=== PATIENT | male | born 1985 | race American Indian/Alaskan Native ===

== ENCOUNTER 2017-05-11 10:23 | Emergency (ER) | payer OTHER ==
[2017-05-11 10:32] VITALS: BP 108/77
[2017-05-11 10:54] LABS: Basophils % (Auto) 0.5 % (0.0-1.8); Hematocrit 46.9 % (35.5-45.6); Hemoglobin 16.1 gm/dl (11.8-15.2); Mean Corpuscular HGB Conc 34 % (32-34); Mean Corpuscular Hemoglobin 31 pg (28-32); Mean Corpuscular Volume 89 fl (84-94); Platelet Count 201 K/mm3 (140-440); Red Blood Count 5.25 M/mm3 (3.65-5.03); Red Cell Distribution Width 12.9 % (13.2-15.2); White Blood Count 6.8 K/mm3 (4.5-11.0)
--- NOTE | 2017-05-11 10:58 | XRay Report ---
ROUTINE CHEST, TWO VIEWS: HISTORY: Flulike symptoms. The trachea, heart, mediastinal contour, lung callejas and bony thorax are unremarkable. IMPRESSION: Unremarkable chest x-ray.
[2017-05-11 11:05] LABS: Anion Gap 18 mmol/L; Blood Urea Nitrogen 13 mg/dL (9-20); Calcium 9.1 mg/dL (8.4-10.2); Carbon Dioxide 24 mmol/L (22-30); Chloride 102.3 mmol/L (98-107); Glucose 104 mg/dL (75-100); Potassium 3.8 mmol/L (3.6-5.0); Sodium 140 mmol/L (137-145)
--- NOTE | 2017-05-11 12:21 | Emergency Department Report ---
Upper Respiratory HPI - HPI Chief Complaint: Upper Respiratory Infection Stated Complaint: COUGHING BLOOD/FLU SYMPTOMS Time Seen by Provider: 05/11/17 11:58 Duration: 5 Days URI Symptoms: Rhinorrhea: Yes, Sore Throat: Yes, Ear Pain: Yes, Cough: Yes, Shortness of Breath: No, Sick Contacts: No, Unable to Take Fluids: No, Urine Output Abnormal: No, Listless Behavior: No - Home Meds and Allergies Home Medications: Previous Rx's Medication Instructions Recorded Last Taken Type Azithromycin [Zithromax Z-EDITH] 0 mg PO DAILY #1 pack 04/29/15 Unknown Rx HYDROcodone/APAP 10-325 [[place] 1 each PO Q4-6H PRN #20 tablet 04/29/15 Unknown Rx 10/325] Methocarbamol [Robaxin TAB] 750 mg PO Q8H PRN #21 tablet 04/29/15 Unknown Rx Promethazine Dm [Phenergan Dm 5 ml PO Q6H PRN #120 ml 04/29/15 Unknown Rx 6.25/15 mg 5 ml] Amoxicillin/K Clav Tab [Augmentin 1 tab PO Q12HR #20 tab 05/11/17 Unknown Rx 875 mg] Ibuprofen [Motrin 800 MG tab] 800 mg PO Q8HR PRN #30 tablet 05/11/17 Unknown Rx P-Ephed HCl/Codeine/Guaifen 5 ml PO Q6HR PRN #120 ml 05/11/17 Unknown Rx [Cheratussin DAC 30-10-100 mg/5 ml] Allergies/Adverse Reactions: Allergies Allergy/AdvReac Type Severity Reaction Status Date / Time No Known Allergies Allergy Verified 04/29/15 12:15 ED Review of Systems ROS: Stated complaint: COUGHING BLOOD/FLU SYMPTOMS Other details as noted in HPI Constitutional: denies: chills, fever Eyes: denies: eye pain, eye discharge, vision change ENT: ear pain, throat pain, congestion Respiratory: cough, wheezing. denies: orthopnea, shortness of breath Cardiovascular: denies: chest pain, palpitations Endocrine: no symptoms reported Gastrointestinal: denies: abdominal pain, nausea, diarrhea Genitourinary: denies: urgency, dysuria Musculoskeletal: denies: back pain, joint swelling, arthralgia Skin: denies: rash, lesions Neurological: denies: headache, weakness, paresthesias Psychiatric: denies: anxiety, depression Hematological/Lymphatic: denies: easy bleeding, easy bruising ED Past Medical Hx - Past Medical History Previous Medical History?: No - Surgical History Past Surgical History?: No - Social History Smoking Status: Never Smoker Substance Use Type: None - Medications Home Medications: Home Medications Medication Instructions Recorded Confirmed Last Taken Type Azithromycin [Zithromax Z-EDITH] 0 mg PO DAILY #1 pack 04/29/15 Unknown Rx HYDROcodone/APAP 10-325 [[place] 1 each PO Q4-6H PRN #20 tablet 04/29/15 Unknown Rx 10/325] Methocarbamol [Robaxin TAB] 750 mg PO Q8H PRN #21 tablet 04/29/15 Unknown Rx Promethazine Dm [Phenergan Dm 5 ml PO Q6H PRN #120 ml 04/29/15 Unknown Rx 6.25/15 mg 5 ml] Amoxicillin/K Clav Tab [Augmentin 1 tab PO Q12HR #20 tab 05/11/17 Unknown Rx 875 mg] Ibuprofen [Motrin 800 MG tab] 800 mg PO Q8HR PRN #30 tablet 05/11/17 Unknown Rx P-Ephed HCl/Codeine/Guaifen 5 ml PO Q6HR PRN #120 ml 05/11/17 Unknown Rx [Cheratussin DAC 30-10-100 mg/5 ml] ED Bronchiolitis Physical Exam - Exam General: Vital signs noted. No distress. Alert and acting appropriately. HEENT: Yes Pharyngeal Erythema, Yes Rhinorrhea, No Conjuctival Injection, No Dry Mucous Membranes Ear: Left TM Erythema, Neither TM Bulge, Neither EAC Discharge Neck: No Adenopathy, No Rigidity Lungs: Yes Clear Lung Sounds, Yes Good Air Exchange, Yes Cough, No Wheezes, No Stridor, No Nasal Flaring, No Retractions, No Use of Accessory Muscles Heart: Yes Regular, No Murmur Abdomen: Yes Normal Bowel Sounds, No Tenderness Skin: No Rash, No Eczema Neurologic: Alert and oriented, no deficits. Musculoskeletal: Unremarkable. ED Bronchiolitis Tests - Testing Testing: CXR: Normal/Negative ED Physical Exam - General Limitations: No Limitations General appearance: alert, in no apparent distress - Head Head exam: Present: atraumatic, normocephalic - Eye Eye exam: Present: normal appearance ED Course Vital Signs 05/11/17 10:27 Temperature 98.5 F Pulse Rate 76 Respiratory 18 Rate Blood Pressure 108/77 O2 Sat by Pulse 100 Oximetry ED Medical Decision Making - Lab Data Result diagrams: 05/11/17 10:38 05/11/17 10:38 - Medical Decision Making pt is a 32 y/o aam with nmh who presents for headcongestion cough productive green noc fever bilat ear and throat pain x 5 days symptoms are exacerbated bay acivity symptoms are relieved by nothing exam: Bilat TM erythema pain , nose : bilat turbinater erythema edema clear post nasal dip pharynx moderate erythema no lesions no exudate uvula midline, no stridor lungs clear bilat no wheezing , no fever chills no at this time. Critical care attestation.: If time is entered above; I have spent that time in minutes in the direct care of this critically ill patient, excluding procedure time. ED Disposition Clinical Impression: Bronchitis AOM (acute otitis media) Qualifiers: Otitis media type: serous Laterality: bilateral Recurrence: not specified as recurrent Qualified Code(s): H65.03 - Acute serous otitis media, bilateral URI (upper respiratory infection) Qualifiers: URI type: unspecified viral URI Qualified Code(s): J06.9 - Acute upper respiratory infection, unspecified; B97.89 - Other viral agents as the cause of diseases classified elsewhere Disposition: DC-01 TO HOME OR SELFCARE Is pt being admited?: No Does the pt Need Aspirin: No Condition: Good Instructions: Chronic Bronchitis (ED) Additional Instructions: follow up with your pcp in 3-4 days Prescriptions: Amoxicillin/K Clav Tab [Augmentin 875 mg] 1 tab PO Q12HR #20 tab Ibuprofen [Motrin 800 MG tab] 800 mg PO Q8HR PRN #30 tablet PRN Reason: pain P-Ephed HCl/Codeine/Guaifen [Cheratussin DAC 30-10-100 mg/5 ml] 5 ml PO Q6HR PRN #120 ml PRN Reason: Cough Referrals: PRIMARY CARE,MD [Primary Care Provider] - 3-5 Days Forms: Work/School Release Form(ED) Time of Disposition: 12:26
== END 2017-05-11 12:38 | disposition home or self-care (01) ==
LOC: ED 10:23
DX: J40 Bronchitis, not specified as acute or chronic (principal); H66.93 Otitis media, unspecified, bilateral; J06.9 Acute upper respiratory infection, unspecified
CPT/HCPCS: 36415; 71020; 80048; 85025; 99283

== ENCOUNTER 2018-11-21 07:32 | Emergency (ER) | payer OTHER ==
--- NOTE | 2018-11-21 08:31 | Emergency Department Report ---
HPI - General Chief Complaint: Back Pain/Injury Time Seen by Provider: 11/21/18 08:16 - HPI HPI: 33-year-old male with no prior medical history presents complaining of lower back pain 2-3 days. Patient states he does a lot of heavy lifting and moving heavy stuff at work. Patient states that he continues he strained his back while doing this. Patient states he is working hard nonstop with no dissolve. Patient denies any injuries, fall trauma to the back. He denies dysuria, abdominal pain, chest pain. ED Past Medical Hx - Past Medical History Previous Medical History?: No - Surgical History Past Surgical History?: No - Social History Smoking Status: Never Smoker Substance Use Type: Marijuana - Medications Home Medications: Home Medications Medication Instructions Recorded Confirmed Last Taken Type Azithromycin [Zithromax Z-EDITH] 0 mg PO DAILY #1 pack 04/29/15 Unknown Rx HYDROcodone/APAP 10-325 [[place] 1 each PO Q4-6H PRN #20 tablet 04/29/15 Unknown Rx 10/325] Methocarbamol [Robaxin TAB] 750 mg PO Q8H PRN #21 tablet 04/29/15 Unknown Rx Promethazine Dm (Nf) [Phenergan Dm 5 ml PO Q6H PRN #120 ml 04/29/15 Unknown Rx 6.25/15 mg 5 ml] Amoxicillin/K Clav Tab [Augmentin 1 tab PO Q12HR #20 tab 05/11/17 Unknown Rx 875 mg] Pseudoephed/Codeine/Guaifen 5 ml PO Q6HR PRN #120 ml 05/11/17 Unknown Rx [Cheratussin DAC 30-10-100 mg/5 ml] Cyclobenzaprine [Flexeril] 10 mg PO QHS PRN #20 tablet 11/21/18 Unknown Rx Ibuprofen [Motrin 800 MG tab] 800 mg PO Q8HR PRN #30 tablet 11/21/18 Unknown Rx ED Review of Systems ROS: Stated complaint: BACK PAIN Other details as noted in HPI Comment: All other systems reviewed and negative Physical Exam - Physical Exam Vital Signs: Vital Signs 11/21/18 07:49 Temperature 98.6 F Pulse Rate 68 Respiratory 20 Rate Blood Pressure 127/61 O2 Sat by Pulse 99 Oximetry Physical Exam: GENERAL: Alert and oriented x3, no apparent distress, Normal Gait, atraumatic. HEAD: Head is normocephalic and a-traumatic. NECK: Supple. Non edematous, No lymphadenopathy or thyromegaly. No C-spine tenderness, full range of motion LUNGS: Symetrical with respiration, No wheezing, no rales or crackles, CTAB. HEART: S1, S2 present, regular rate and rhythm without murmur, no rubs, no gallops. Non tender to palpation BACK: Full range of motion, no spinal tenderness, Tenderness to palpation of the trapezius muscles and latissimus dorsi muscles of the back EXTREMITIES/MUSCULOSKELETAL: No cyanosis, clubbing, rash, lesions or edema. Full ROM bilaterally. UE/LE Pulses 2+ bilaterally. NEUROLOGIC: The patient is cooperative with no focal neurologic deficits. SKIN: Warm and dry, No lesions, No ulceration or induration present. ED Course Vital Signs 11/21/18 07:49 Temperature 98.6 F Pulse Rate 68 Respiratory 20 Rate Blood Pressure 127/61 O2 Sat by Pulse 99 Oximetry ED Medical Decision Making - Medical Decision Making 33-year-old male presents to ED with myalgia ED course: Patient received Toradol and Flexeril in ED. Vital signs are normal patient is in no acute distress Discussed with patient follow-up with primary care physician. Discussed the patient and take medications as prescribed. Patient has no neurological deficit. Patient is alert and oriented 3 and understands all instructions given. Discussed drowsiness effect of Flexeril makes her drowsy and not to operate machinery while taking flexeril Critical care attestation.: If time is entered above; I have spent that time in minutes in the direct care of this critically ill patient, excluding procedure time. ED Disposition Clinical Impression: Strain of muscle, fascia and tendon of lower back, initial encounter Disposition: DC-01 TO HOME OR SELFCARE Is pt being admited?: No Does the pt Need Aspirin: No Condition: Stable Instructions: Muscle Strain (ED), Low Back Strain (ED) Additional Instructions: Make sure to follow up with the primary care physician as discussed. Take all your medications as you've been prescribed. If you have any worsening symptoms or develop new symptoms please return to ED immediately. Prescriptions: Cyclobenzaprine [Flexeril] 10 mg PO QHS PRN #20 tablet PRN Reason: Muscle Spasm Ibuprofen [Motrin 800 MG tab] 800 mg PO Q8HR PRN #30 tablet PRN Reason: pain Referrals: CARBUCCIA,JHONATHAN [Primary Care Provider] - 3-5 Days [facility] [Outside] - 3-5 Days [facility] [Outside] - 3-5 Days Forms: Work/School Release Form(ED) Time of Disposition: 08:37
== END 2018-11-21 08:43 | disposition home or self-care (01) ==
LOC: ED 07:32
CPT/HCPCS: 99282

== ENCOUNTER 2019-05-26 06:57 | Emergency (ER) | payer OTHER ==
[2019-05-26 07:03] VITALS: BP 111/65
--- NOTE | 2019-05-26 07:46 | Emergency Department Report ---
ED Back Pain/Injury HPI - General Chief Complaint: Back Pain/Injury Stated Complaint: BACK PAIN Time Seen by Provider: 05/26/19 07:42 Source: patient Limitations: No Limitations - History of Present Illness Initial Comments: This is a 34-year-old male here report that this he injured his back at work from lifting heavy boxes and reduction to get boxes of shelves. He said this is going on for 2 days and is having pain in his lower back. Denies any direct trauma. Denies any numbness or tingling to extremities. Denies any loss of bowel or bladder function. Denies any nausea or vomiting. Denies any abdominal pain. Pain is 7 out of 10 H he and sharp. Pain is worse with bending and better at rest then. Denies taking any medication prior to coming to hospital. Patient has been here in the past 11/21/2018 and was prescribed Flexeril and ibuprofen. Denies any chest pain or headache. Has any abdominal pain. Pain is intermittent MD Complaint: back pain Onset/Timin -: days(s) Similar Symptoms Previously: Yes Place: work Radiation: none Severity: severe Severity scale (0 -10): 7 Quality: sharp, aching Consistency: intermittent Improves With: immobilization Worsens With: movement Context: other (LIFTING heavy objects) Associated Symptoms: denies: confusion, weakness, chest pain, numbness, difficulty walking, cough, difficulty urinating, diaphoresis, incontinence, fever/chills, constipation, headaches, abdominal pain, loss of appetite, malaise, nausea/vomiting, rash, seizure, shortness of breath, syncope Treatments Prior to Arrival: other (NONE) - Related Data Previous Rx's Medication Instructions Recorded Last Taken Type Azithromycin [Zithromax Z-EDITH] 0 mg PO DAILY #1 pack 04/29/15 Unknown Rx HYDROcodone/APAP 10-325 [[place] 1 each PO Q4-6H PRN #20 tablet 04/29/15 Unknown Rx 10/325] Promethazine Dm (Nf) [Phenergan Dm 5 ml PO Q6H PRN #120 ml 04/29/15 Unknown Rx 6.25/15 mg 5 ml] methOCARBAMOL [Robaxin TAB] 750 mg PO Q8H PRN #21 tablet 04/29/15 Unknown Rx Amoxicillin/K Clav Tab [Augmentin 1 tab PO Q12HR #20 tab 05/11/17 Unknown Rx 875 mg] Pseudoephed/Codeine/Guaifen 5 ml PO Q6HR PRN #120 ml 05/11/17 Unknown Rx [Cheratussin DAC 30-10-100 mg/5 ml] Cyclobenzaprine [Flexeril] 10 mg PO QHS PRN #20 tablet 11/21/18 Unknown Rx Ibuprofen [Motrin 800 MG tab] 800 mg PO Q8HR PRN #30 tablet 11/21/18 Unknown Rx Cyclobenzaprine [Flexeril] 10 mg PO TID PRN #12 tablet 05/26/19 Unknown Rx Ibuprofen [Motrin] 800 mg PO Q8HR PRN #12 tablet 05/26/19 Unknown Rx Allergies Allergy/AdvReac Type Severity Reaction Status Date / Time No Known Allergies Allergy Verified 04/29/15 12:15 ED Review of Systems ROS: Stated complaint: BACK PAIN Other details as noted in HPI Constitutional: denies: chills, fever Respiratory: denies: cough, shortness of breath, wheezing Cardiovascular: denies: chest pain, palpitations, edema, syncope Gastrointestinal: denies: abdominal pain, nausea, vomiting Genitourinary: denies: dysuria, hematuria, testicular pain Musculoskeletal: back pain. denies: joint swelling, arthralgia, myalgia Skin: denies: rash Neurological: denies: headache, numbness, paresthesias, abnormal gait, vertigo ED Past Medical Hx - Past Medical History EPISODIC back pain Surgical history: no surgical history Family history: no significant family history - Social History Smoking Status: Never Smoker Alcohol use: none Drug use: none ED Back Pain Physical Exam - Exam General: Vital signs noted. No distress. Alert and acting appropriately. 34-year-old male well-nourished well-developed in no acute distress Abdomen: Soft, nontender to palpation in all quadrants. Normal bowel sounds ext: No clubbing cyanosis or edema. +2 pulses in all extremities. MSK: Patient ambulates without any difficulties, normal exam with full range of motion. No joints abnormalities Lungs: cLEAR Auscultated bilaterally, no rhonchi wheezes or rales CV: S1-S2, regular Neurological: GCS of 15, normal gait, negative pronator drift. Negative straight leg raises, normal sensation to extremities, gait and Romberg. No motor sensory deficits Back/Abdomen: No Abdominal Tenderness, No Perithoracic Tenderness, No Perilumbar Tenderness, No Sacroiliac Tenderness, No Flank Tenderness, No Straight Leg Raise Pain Neuro: Yes Normal Sensation, Yes Motor Weakness, Yes Normal DTR's, Yes Normal Gait ED Course Vital Signs 05/26/19 06:59 Temperature 97.9 F Pulse Rate 61 Respiratory 18 Rate Blood Pressure 111/65 O2 Sat by Pulse 98 Oximetry - Reevaluation(s) Reevaluation #1: 05/26/19 08:29 Patient given Toradol 60 mg IM and Decadron 10 mg IM in emergency room for pain with good relief. ED Medical Decision Making - Medical Decision Making This is a 34-year-old male here for back pain which she has had similar pain in the past. Physical exam with normal findings. He complains of pain with movement. Patient was given pain medication in emergency room with positive relief of pain. I discussed the diagnosis and treatment plan and the force understanding. Patient discharged home in stable condition with prescription for Flexeril and Motrin and to follow-up with orthopedic doctor if continued back pain in 2-3 days and also his primary care physician. Critical care attestation.: If time is entered above; I have spent that time in minutes in the direct care of this critically ill patient, excluding procedure time. ED Disposition Clinical Impression: Back pain Qualifiers: Back pain location: low back pain Chronicity: unspecified Back pain laterality: bilateral Sciatica presence: without sciatica Qualified Code(s): M54.5 - Low back pain Disposition: DC-01 TO HOME OR SELFCARE Is pt being admited?: No Does the pt Need Aspirin: No Condition: Stable Instructions: Back Pain (ED), RICE Therapy (ED) Additional Instructions: Presents to the hospital if his symptoms worsen. pLEASE READ discharge instructions given to Orthopedic doctor Sonali primary care doctor in 2-3 days tAKE Motrin and Flexeril as prescribed please do not drive or operate heavy machinery while taking Flexeril and take Motrin with food as it can cause upset stomach Referrals: SARAY YING MD [Staff Physician] - 2-3 Days [facility] [Outside] - 2-3 Days Forms: Work/School Release Form(ED)
[2019-05-26] MEDS ORDERED: DECADRON IM STA (07:47)
[2019-05-26] MEDS ORDERED: TORADOL IM ONE (07:47)
== END 2019-05-26 08:40 | disposition home or self-care (01) ==
LOC: ED 06:57
DX: M54.5 Low back pain (principal); G89.29 Other chronic pain; Z79.1 Long term (current) use of non-steroidal anti-inflammatories (NSAID); Z79.899 Other long term (current) drug therapy; X50.0XXA Overexertion from strenuous movement or load, initial encounter; Y93.89 Activity, other specified; Y92.69 Other specified industrial and construction area as the place of occurrence of the external cause; Y99.8 Other external cause status
CPT/HCPCS: 96372; 99282; J1100; J1885

== ENCOUNTER 2019-08-16 06:49 | Emergency (ER) | payer OTHER ==
--- NOTE | 2019-08-16 08:20 | Emergency Department Report ---
ED ENT HPI - General Chief complaint: Dental/Oral Stated complaint: TOOTHACHE Time Seen by Provider: 08/16/19 08:02 Source: patient Mode of arrival: Ambulatory Limitations: No Limitations - History of Present Illness Initial comments: Patient is a 34-year-old male presents emergency room with complaints of toothache 1 week. Patient states it's his right rear tooth that is hurting. Patient denies fever chills. Patient denies inflammation. Patient denies chest pain shortness of breath. Patient denies bodyaches. Patient states his pain is a 6 out of 10. Patient states is better with rest and worse with chewing. Patient denies allergies. Patient denies past medical history. he states she has called multiple dentists and is unable to get appointment for a few weeks. MD complaint: tooth pain -: Sudden, week(s) Severity: moderate, severe Severity scale (0 -10): 6 Quality: stabbing Consistency: constant Improves with: rest Worsens with: movement Context- Dental: history of dental caries Associated Symptoms: toothache. denies: fever, cough, gum swelling, pain with swallowing, sore throat, tinnitus, hearing loss, discharge from ear, rhinorrhea - Related Data Previous Rx's Medication Instructions Recorded Last Taken Type Azithromycin [Zithromax Z-EDITH] 0 mg PO DAILY #1 pack 04/29/15 Unknown Rx HYDROcodone/APAP 10-325 [[place] 1 each PO Q4-6H PRN #20 tablet 04/29/15 Unknown Rx 10/325] Promethazine Dm (Nf) [Phenergan Dm 5 ml PO Q6H PRN #120 ml 04/29/15 Unknown Rx 6.25/15 mg 5 ml] methOCARBAMOL [Robaxin TAB] 750 mg PO Q8H PRN #21 tablet 04/29/15 Unknown Rx Amoxicillin/K Clav Tab [Augmentin 1 tab PO Q12HR #20 tab 05/11/17 Unknown Rx 875 mg] Pseudoephed/Codeine/Guaifen 5 ml PO Q6HR PRN #120 ml 05/11/17 Unknown Rx [Cheratussin DAC 30-10-100 mg/5 ml] Cyclobenzaprine [Flexeril] 10 mg PO QHS PRN #20 tablet 11/21/18 Unknown Rx Ibuprofen [Motrin 800 MG tab] 800 mg PO Q8HR PRN #30 tablet 11/21/18 Unknown Rx Cyclobenzaprine [Flexeril] 10 mg PO TID PRN #12 tablet 05/26/19 Unknown Rx Amoxicillin/Potassium Clav 1 each PO Q12H 10 Days #20 tablet 08/16/19 Unknown Rx [Augmentin 875-125 Tablet] Ibuprofen [Motrin 800 MG tab] 800 mg PO Q8HR PRN #12 tablet 08/16/19 Unknown Rx Allergies Allergy/AdvReac Type Severity Reaction Status Date / Time No Known Allergies Allergy Verified 04/29/15 12:15 ED Dental HPI - General Chief complaint: Dental/Oral Stated complaint: TOOTHACHE Time Seen by Provider: 08/16/19 08:15 Source: patient Mode of arrival: Ambulatory Limitations: No Limitations - Related Data Previous Rx's Medication Instructions Recorded Last Taken Type Azithromycin [Zithromax Z-EDITH] 0 mg PO DAILY #1 pack 04/29/15 Unknown Rx HYDROcodone/APAP 10-325 [[place] 1 each PO Q4-6H PRN #20 tablet 04/29/15 Unknown Rx 10/325] Promethazine Dm (Nf) [Phenergan Dm 5 ml PO Q6H PRN #120 ml 04/29/15 Unknown Rx 6.25/15 mg 5 ml] methOCARBAMOL [Robaxin TAB] 750 mg PO Q8H PRN #21 tablet 04/29/15 Unknown Rx Amoxicillin/K Clav Tab [Augmentin 1 tab PO Q12HR #20 tab 05/11/17 Unknown Rx 875 mg] Pseudoephed/Codeine/Guaifen 5 ml PO Q6HR PRN #120 ml 05/11/17 Unknown Rx [Cheratussin DAC 30-10-100 mg/5 ml] Cyclobenzaprine [Flexeril] 10 mg PO QHS PRN #20 tablet 11/21/18 Unknown Rx Ibuprofen [Motrin 800 MG tab] 800 mg PO Q8HR PRN #30 tablet 11/21/18 Unknown Rx Cyclobenzaprine [Flexeril] 10 mg PO TID PRN #12 tablet 05/26/19 Unknown Rx Amoxicillin/Potassium Clav 1 each PO Q12H 10 Days #20 tablet 08/16/19 Unknown Rx [Augmentin 875-125 Tablet] Ibuprofen [Motrin 800 MG tab] 800 mg PO Q8HR PRN #12 tablet 08/16/19 Unknown Rx Allergies Allergy/AdvReac Type Severity Reaction Status Date / Time No Known Allergies Allergy Verified 04/29/15 12:15 ED Review of Systems ROS: Stated complaint: TOOTHACHE Other details as noted in HPI Constitutional: denies: chills, fever Eyes: denies: eye pain, eye discharge, vision change ENT: dental pain. denies: ear pain, throat pain Respiratory: denies: cough, shortness of breath, wheezing Cardiovascular: denies: chest pain, palpitations Endocrine: no symptoms reported Gastrointestinal: denies: abdominal pain, nausea, diarrhea Genitourinary: denies: urgency, dysuria Musculoskeletal: denies: back pain, joint swelling, arthralgia Skin: denies: rash, lesions Neurological: denies: headache, weakness, paresthesias Psychiatric: denies: anxiety, depression Hematological/Lymphatic: denies: easy bleeding, easy bruising ED Past Medical Hx - Past Medical History Previous Medical History?: Yes Hx Hypertension: No Additional medical history: EPISODIC back pain - Surgical History Past Surgical History?: No - Family History Family history: no significant - Social History Smoking Status: Never Smoker Substance Use Type: None - Medications Home Medications: Home Medications Medication Instructions Recorded Confirmed Last Taken Type Azithromycin [Zithromax Z-EDITH] 0 mg PO DAILY #1 pack 04/29/15 Unknown Rx HYDROcodone/APAP 10-325 [[place] 1 each PO Q4-6H PRN #20 tablet 04/29/15 Unknown Rx 10/325] Promethazine Dm (Nf) [Phenergan Dm 5 ml PO Q6H PRN #120 ml 04/29/15 Unknown Rx 6.25/15 mg 5 ml] methOCARBAMOL [Robaxin TAB] 750 mg PO Q8H PRN #21 tablet 04/29/15 Unknown Rx Amoxicillin/K Clav Tab [Augmentin 1 tab PO Q12HR #20 tab 05/11/17 Unknown Rx 875 mg] Pseudoephed/Codeine/Guaifen 5 ml PO Q6HR PRN #120 ml 05/11/17 Unknown Rx [Cheratussin DAC 30-10-100 mg/5 ml] Cyclobenzaprine [Flexeril] 10 mg PO QHS PRN #20 tablet 11/21/18 Unknown Rx Ibuprofen [Motrin 800 MG tab] 800 mg PO Q8HR PRN #30 tablet 11/21/18 Unknown Rx Cyclobenzaprine [Flexeril] 10 mg PO TID PRN #12 tablet 05/26/19 Unknown Rx Amoxicillin/Potassium Clav 1 each PO Q12H 10 Days #20 tablet 08/16/19 Unknown Rx [Augmentin 875-125 Tablet] Ibuprofen [Motrin 800 MG tab] 800 mg PO Q8HR PRN #12 tablet 08/16/19 Unknown Rx ED Physical Exam - General Limitations: No Limitations General appearance: alert, in no apparent distress - Head Head exam: Present: atraumatic, normocephalic - Eye Eye exam: Present: normal appearance - ENT ENT exam: Present: mucous membranes moist, other (dental caries noted. Large [employer] and noted over the right rear wisdom tooth. Slight gingival swelling noted. no abscess noted) - Neck Neck exam: Present: normal inspection - Respiratory Respiratory exam: Present: normal lung sounds bilaterally. Absent: respiratory distress - Cardiovascular Cardiovascular Exam: Present: regular rate, normal rhythm. Absent: systolic murmur, diastolic murmur, rubs, gallop - GI/Abdominal GI/Abdominal exam: Present: soft, normal bowel sounds - Rectal Rectal exam: Present: deferred - Extremities Exam Extremities exam: Present: normal inspection - Back Exam Back exam: Present: normal inspection - Neurological Exam Neurological exam: Present: alert, oriented X3 - Psychiatric Psychiatric exam: Present: normal affect, normal mood - Skin Skin exam: Present: warm, dry, intact, normal color. Absent: rash ED Course - Reevaluation(s) Reevaluation #1: I discussed all clinical findings with patient. I discussed plan of care with patient. Patient agrees with plan of care. Patient is stable for discharge. Patient will be discharged home. Patient given discharge instructions. Patient voiced understanding of discharge instructions. 08/16/19 08:20 ED Medical Decision Making - Medical Decision Making Patient is a 34-year-old male that presents emergency room with toothache. Patient will be given antibiotics and referred to a dentist. Patient does not require any further evaluation in the ER. Patient will be discharged home. - Differential Diagnosis toothache. Dental pain. Gingivitis. Dental infection. Critical care attestation.: If time is entered above; I have spent that time in minutes in the direct care of this critically ill patient, excluding procedure time. ED Disposition Clinical Impression: Pain, dental, Dental caries, Dental infection Disposition: DC-01 TO HOME OR SELFCARE Is pt being admited?: No Does the pt Need Aspirin: No Condition: Stable Instructions: Dental Caries (ED), Toothache (ED) Additional Instructions: Patient to follow-up with primary care in 2-3 days. Patient to follow-up with a dentist in 2-3 days. Patient to return to ER if condition worsens. Patient to rest. Patient to increase water. Patient to take meds as directed. Patient's take Tylenol or ibuprofen when necessary for pain. Prescriptions: Amoxicillin/Potassium Clav [Augmentin 875-125 Tablet] 1 each PO Q12H 10 Days #20 tablet Ibuprofen [Motrin 800 MG tab] 800 mg PO Q8HR PRN #12 tablet PRN Reason: pain Referrals: PRIMARY CARE, [Primary Care Provider] - 2-3 Days Time of Disposition: 08:20
[2019-08-16 08:36] VITALS: BP 115/66
== END 2019-08-16 08:36 | disposition home or self-care (01) ==
LOC: ED 06:49
DX: K04.7 Periapical abscess without sinus (principal); K02.9 Dental caries, unspecified; Z79.899 Other long term (current) drug therapy